=== PATIENT | male | born 2000 | race Caucasian/White ===

== ENCOUNTER 2021-11-23 19:10 | Emergency (ER) | payer BC ==
[2021-11-23 20:07] LABS: HEMOGLOBIN 16.7 gm/dl (14.0-17.5); RED BLOOD COUNT 5.43 M/UL (4.20-5.50); WHITE BLOOD COUNT 6.9 K/UL (4.5-11.0)
[2021-11-23 20:21] LABS: BUN/CREATININE RATIO 16 (0-10)
[2021-11-23] MEDS ORDERED: IBUPROFEN600 MG PO (22:16)
[2021-11-23] MEDS ORDERED: KEFLEX CAP 250250 MG PO (22:16)
== END 2021-11-23 22:55 | disposition home or self-care (01) ==
LOC: ER1 19:10
PROVIDERS: Family Medicine
DX: S01.311A Laceration without foreign body of right ear, initial encounter (principal); F17.290 Nicotine dependence, other tobacco product, uncomplicated; E10.9 Type 1 diabetes mellitus without complications; Z23 Encounter for immunization; V86.99XA Unspecified occupant of other special all-terrain or other off-road motor vehicle injured in nontraffic accident, initial encounter
CPT/HCPCS: 12013; 70450; 71045; 80053; 80307; 81001; 82962; 85025; 85610; 90471; 96374; 99284; G0480; J0690; J2270; J2405